=== PATIENT | male | born 1990 | race Caucasian/White ===

== ENCOUNTER 2019-05-15 08:06 | Observation (INO) ==
[2019-05-15] MEDS ORDERED: NS 1,000 ML IV ONE (08:34)
--- NOTE | 2019-05-15 08:38 | PROVIDER DOCUMENTATION ---
HPI-Abdominal Pain/GI Problem - General Chief Complaint: Abdominal Pain Stated Complaint: STOMACH PAIN Time Seen by Provider: 05/15/19 08:30 Allergies/Adverse Reactions: Patient Allergies Allergy/AdvReac Type Severity Reaction Status Date / Time amoxicillin trihydrate * Allergy Intermediate Unknown Verified 05/15/19 08:13 [From Augmentin] potassium clavulanate * Allergy Intermediate Unknown Verified 05/15/19 08:13 [From Augmentin] Home Medications: Home Medication List Medication Instructions Recorded Confirmed Last Taken Type Bictegrav/Emtricit/Tenofov Ala 1 tab PO QHS 05/15/19 05/15/19 05/14/19 History [Biktarvy 50-200-25 mg Tablet] Hydrocodone/APAP 7.5 mg/325 mg 1 ea PO Q6H PRN PRN #10 tab 05/16/19 Unknown Rx [Cyclone-7.5] - History of Present Illness-ABD Nature of Presenting Problems: Patient presents due to abdominal pain that began yesterday. Patient states it was uncomfortable yesterday and in the center. Patient states he was awoke this am and had sharp pain in the right side of his abdomen with rebound tenderness in RLQ. Abdominal Pain Onset Location: reports: RLQ, flank Pain Radiation: reports: no radiation Quality of Pain: reports: cramping, sharp Severity in ED: reports: moderate Onset/Duration: reports: gradual Timing: reports: still present Activities at Onset: reports: none Modifying Factors: improves with: palpation Associated Symptoms: denies: fatigue, fever/chills Last BM: this morning Dark Stools Present?: reports: none noticed Rectal Bleeding: reports: none # of Diarrhea Episodes: 1 # of Vomiting Episodes: 2 Review of Systems - Adult - REVIEW OF SYSTEMS - ADULT Constitutional: denies: fever, fatique Eyes: reports: no symptoms reported Ears, Nose, Mouth & Throat: reports: no symptoms reported Cardiovascular: reports: no symptoms reported Respiratory: reports: no symptoms reported Gastrointestinal: reports: abdominal pain Genitourinary: reports: no symptoms reported Musculoskeletal: reports: no symptoms reported Integumentary: reports: no symptoms reported Neurological: reports: no symptoms reported Psychiatric: reports: no symptoms reported Endocrine: reports: no symptoms reported Hematologic/Lymphatic: reports: no symptoms reported Allergic/Immunologic: reports: no symptoms reported Past History - Adult - PAST MEDICAL HISTORY-ADULT Review of Records: reports: Nursing Assessment Review Physical Exam-General - PHYSICAL EXAM-ADULT Initial Vital Signs Reviewed: Yes - CONSTITUTIONAL General Appearance: appears well, alert, no apparent distress - EYES Eyes: PERRL/EOMI - HEAD, EARS, NOSE, MOUTH & THROAT HENMT: normocephalic/atraumatic - NECK Neck: non-tender, supple - RESPIRATORY Respiratory: chest non-tender, lungs clear - CARDIOVASCULAR Cardiovascular: normal peripheral pulses, regular rate, rhythm, no edema, no gallop, no JVD, no murmur - GASTROINTESTINAL (ABDOMEN) Abdominal Exam: soft, other (RLQ pain) - LYMPHATIC Lymphatic: no adenopathy - MUSCULOSKELETAL Back Exam: no CVA tenderness, no vertebral tenderness Extremity: non-tender, normal gait - SKIN Integumentary: normal color, warm/dry - NEUROLOGIC Neurologic: grossly normal, no motor/sensory deficits - PSYCHIATRIC Psych/Mental Status: normal mood/affect, normal thought content, normal thought process Progress - PLAN OF CARE/RESULTS Progress/Plan/Lab Results: Vital Signs - 8 hr 05/15/19 08:10 Temperature 98.3 F Pulse Rate 102 H Respiratory Rate 20 Blood Pressure 151/107 O2 Sat by Pulse Oximetry 98 Orders Category Date Time Status Saline Loc DIRECTED Care 05/15/19 08:32 Ordered NPO Diet 05/15/19 08:[address] ABDOMEN/PELVIS W/O CONTRAST [CT] Stat Exams 05/15/19 08:33 Ordered AMYLASE [CHEM] Stat Lab 05/15/19 08:32 Uncollected CBC WITH ELECTRONIC DIFF [HEME] Stat Lab 05/15/19 08:32 Uncollected COMPREHENSIVE METABOLIC PANEL [CHEM] Stat Lab 05/15/19 08:32 Uncollected LIPASE [CHEM] Stat Lab 05/15/19 08:32 Uncollected URINALYSIS W/POSS RFLX CULT [URINALYSIS] Stat Lab 05/15/19 08:32 Uncollected Ns 1000 ml IV Bolus X1 Med 05/15/19 08:34 Ordered 0.9% Sodium Chloride Inj [Ns] 1,000 ml IV 999 mls/hr Result Diagrams: 05/15/19 08:25 05/15/19 08:25 - CONSULTS/PCP/HOSPITALIST Notification #1 *Consult/PCP/Hospitalist*: Dr Beach Time Discussed: 10:28 Consult Disposition: Will see in ED (agreed to see patient in ER) Departure - Departure Date of Disposition Decision: 05/15/19 Time of Disposition Decision: 10:29 DIAGNOSIS: Appendicitis Qualifiers: Appendicitis type: unspecified Qualified Code(s): K37 - Unspecified appendicitis Disposition: ADMITTED INPATIENT 09 Certified Medical Emergency: Emergent Condition: Good - Critical Care Note This patient required my direct & personal management of CC.: No Attestation - Physician/ RICH Attestation Patient care was provided by Advanced Practice Provider:: No The physician spent face to face time with patient:: Yes Advanced Practice Provider documentation review:: Supervising physician onsite and consulted in the evaluation and care of this patient. The physician did have a face to face encounter with the patient.
[2019-05-15 08:46] LABS: URINE SOURCE CLEAN CATCH
[2019-05-15 08:49] LABS: BASO# 0.04 X1000 (0.0-0.2); BASO% 0.3 % (0.0-0.8); EOS# 0.08 X1000 (0.0-0.7); EOS% 0.7 % (0.0-10.0); HEMATOCRIT 46.2 % (42.0-52.0); HEMOGLOBIN 15.7 g/dL (14.0-18.0); IMM GRAN# 0.02 X1000 (0.0-0.04); IMM GRAN% 0.2 % (0.0-0.5); LYMPH# 1.79 X1000 (1.2-3.4); MCH 31.1 PG (27-31); MCV 91.5 FL (81-99); MONO# 1.11 X1000 (0.11-0.59); MONO% 9.3 % (1.7-9.3); MPV 9.4 FL (7.4-10.4); NEUT# 8.92 X1000 (1.4-6.5); NEUT% 74.5 % (42.2-75.2); PLT 322 X1000 (130-400); RBC 5.05 XMIL (4.7-6.1); RDW 13.1 % (11.5-14.5); WBC 11.96 X1000 (4.8-10.8)
[2019-05-15 08:50] LABS: BILIRUBIN URINE NEGATIVE (NEGATIVE); BLOOD URINE NEGATIVE (NEGATIVE); COLOR ORANGE; GLUCOSE URINE NEGATIVE (NEGATIVE); KETONE URINE NEGATIVE (NEGATIVE); LEUKOCYTES URINE NEGATIVE (NEGATIVE); NITRITE URINE NEGATIVE (NEGATIVE); PH URINE 7.5; PROTEIN URINE TRACE mg/dL (NEGATIVE); SP GRAVITY URINE 1.023; TURBIDITY URINE HAZY (CLEAR); UROBILINOGEN URINE NORMAL (NORMAL)
[2019-05-15 08:54] LABS: UR EPITHELIAL CELLS <10 /HPF (<10); URINE BACTERIA NEGATIVE /HPF; URINE RBC <10 /HPF (<10); URINE WBC <10 /HPF (<10)
[2019-05-15 09:04] LABS: AGAP 14; ALB/GLOB RATIO 1.8; ALBUMIN 4.4 g/dL (3.5-5.0); ALKALINE PHOSPHATASE 74 U/L (32-122); AMYLASE 138 U/L (20-200); BUN 15 mg/dL (8-22); CALCIUM 9.2 mg/dL (8.8-10.2); CHLORIDE 102 mmol/L (98-107); COSMO 282; CREATININE 1.2 mg/dL (0.7-1.2); ESTIMATED GFR > 60; GLUCOSE 96 mg/dL (70-104); GOT 14 U/L (10-34); GPT 12 U/L (10-44); LIPASE 136 U/L (13-60); POTASSIUM 3.9 mmol/L (3.5-5.1); SODIUM 141 mmol/L (136-145); TCO2 25 mmol/L (25-35); TOTAL PROTEIN 6.8 g/dL (6.3-8.3)
--- NOTE | 2019-05-15 09:08 | Diag Imaging Result Doc PS360 ---
EXAM: CT ABDOMEN/PELVIS W/O CONTRAST 05/15/2019 HISTORY: right side abdomen TECHNIQUE: This exam was performed using automated exposure control, adjustment of mA or kV according to patient size, and/or use of iterative reconstruction technique. COMMENT: The current examination is compared with the previous study of 04/01/2012. There is minimal dependent atelectasis bilaterally which was not present on the previous study. The gallbladder is not distended. There may be some cholesterol stones and sediment in the gallbladder fundus. No evidence of para cholecystic fluid is present. The liver and spleen are unremarkable. The adrenal glands are not enlarged. The pancreas is within normal limits. There is right-sided nephrolithiasis with multiple small 1 to 2 mm sized stones particularly in the lower pole. No evidence of hydronephrosis is present. There was hydronephrosis on the previous study on the left but this is no longer present. There is no evidence of ureterolithiasis. There is free fluid in the pelvis. The urinary bladder is not distended. There is an appendicolith. The appendix is markedly distended to almost 2 cm proximally. There is considerable fluid around the base of the appendix. No discrete abscess is identified and there is no evidence of extraluminal gas. These findings were not present at the time the previous study. There is no evidence of bowel obstruction. There are some scattered bone islands in the pelvis and proximal femora. No acute bony abnormalities are present. IMPRESSION: Acute appendicitis. Electronically signed by Jimbo Mendez 05/15/2019 9:06 AM
[2019-05-15] MEDS ORDERED: MAXIPIME 2 GM/NS 2 GM/100 ML IVPB IV ONE (10:28)
[2019-05-15] MEDS: MORPHINE IV PRN ×3 (13:39→18:52)
[2019-05-15] MEDS ORDERED: DIPRIVAN 1% ONE (18:02)
[2019-05-15] MEDS ORDERED: ROBINUL ONE ×2 (18:02→19:25)
[2019-05-15] MEDS ORDERED: FENTANYL ONE (18:02)
[2019-05-15] MEDS ORDERED: QUELICIN (DOSE) ONE (18:02)
[2019-05-15] MEDS ORDERED: XYLOCAINE-MPF 2% ONE (18:04)
[2019-05-15] MEDS ORDERED: REGLAN ONE (18:22)
[2019-05-15] MEDS ORDERED: ZOFRAN ONE (18:22)
[2019-05-15] MEDS ORDERED: PEPCID ONE (18:23)
--- NOTE | 2019-05-15 18:38 | HISTORY AND PHYSICAL ---
HISTORY OF PRESENT ILLNESS: Mr. Youssef is a 28-year-old, white male, HIV positive who presented to our emergency department with a 24-hour history of abdominal pain which localized to his right lower quadrant. He presented to our emergency department, and a CT scan of his abdomen and pelvis was performed, which suggested acute appendicitis as did his exam, and we were asked to evaluate him. PAST MEDICAL HISTORY: HIV positive cared for in the [facility]. He has had a tonsillectomy. He has been told he had GERD. He has also been told that he has gallstones. He has also had kidney stones. MEDICATIONS: Per chart. ALLERGIES: No known drug allergies. SOCIAL HISTORY: His mother was present at the bedside. REVIEW OF SYSTEMS: A 14-point review of systems was performed and was essentially negative except for the history of present illness. FAMILY HISTORY: Was reviewed with the patient and was noncontributory. PHYSICAL EXAMINATION: GENERAL: Mr. Youssef is a young white male in no acute distress. No evidence of jaundice, no oral lesions, no cervical or supraclavicular lymphadenopathy. HEART: Regular rate. LUNGS: Clear to auscultation and percussion bilaterally. ABDOMEN: He has a tattoo at his umbilicus. He is tender in the right lower quadrant. He has no previous scars from abdominal surgery. No hernias. No palpable mass. He has right-sided costovertebral tenderness. RECTAL EXAM: Was not performed. EXTREMITIES: He does have palpable peripheral pulses. No peripheral edema. NEUROLOGICAL: There are no focal deficits. IMPRESSION: CT scan suggests acute appendicitis. PLAN: Laparoscopic, possible open, appendectomy today. I have discussed the procedure in detail with him. At the bedside in the emergency department, his mother was present. We specifically discussed risks of bleeding, infection, injury to intraabdominal contents with trochar placement, removal of a normal appendix, leakage from the appendiceal stump requiring reoperation for infection, conversion of laparoscopic to open appendectomy. He understands the need for surgery, and its risks and he wants to proceed. cc: May Beach MD
[2019-05-15] MEDS ORDERED: DURAMORPH ONE (18:47)
[2019-05-15] MEDS ORDERED: SENSORCAINE 0.25%/EPI 1:200,000 ONE (19:03)
[2019-05-15] MEDS ORDERED: LR 1,000 ML ONE ×2 (19:03→20:46)
[2019-05-15] MEDS ORDERED: STERILE WATER INJ. ONE (19:20)
[2019-05-15] MEDS ORDERED: NORCURON ONE (19:20)
[2019-05-15] MEDS ORDERED: NEOSTIGMINE ONE (19:25)
[2019-05-15] MEDS ORDERED: DECADRON ONE (19:48)
[2019-05-15] MEDS ORDERED: BLISTEX MEDICATED BERRY LIP BALM ONE (20:39)
[2019-05-15] MEDS ORDERED: LR 500 ML ONE (20:39)
[2019-05-15] MEDS: DILAUDID ONE ×4 (20:46→20:59)
[2019-05-15] MEDS ORDERED: TORADOL ONE (21:02)
[2019-05-15] MEDS ORDERED: SODIUM CHLORIDE 0.9% INJ PRN (22:15)
[2019-05-15] MEDS ORDERED: PHENERGAN IV PRN (22:15)
[2019-05-15] MEDS ORDERED: NORCO-7.5 PO PRN (22:19)
[2019-05-15] MEDS ORDERED: MORPHINE IV PRN (22:19)
[2019-05-15] MEDS: MOTRIN PO SCH (22:53)
[2019-05-15] MEDS: TYLENOL PO SCH (22:54)
[2019-05-15] MEDS ORDERED: LR 1,000 ML IV SCH (23:00)
--- NOTE | 2019-05-16 05:36 | OPERATIVE NOTE ---
PROCEDURE DATE: 05/15/2019 PREOPERATIVE DIAGNOSIS: Acute appendicitis. POSTOPERATIVE DIAGNOSIS: Acute appendicitis. PRINCIPAL PROCEDURE: Laparoscopic appendectomy. SURGEON: May Beach MD. GASOLINE POWER SHOVEL OPERATOR: Alonzo Woodruff MD. ANESTHESIA: General in addition to local anesthetic. ESTIMATED BLOOD LOSS: 25 mL. DRAINS: None. INDICATIONS: Gadiel Youssef is a 28-year-old white male HIV positive who presented to our emergency department with a 24 hour history of abdominal pain localizing to his right lower quadrant. As part of his evaluation, a CT scan of his abdomen and pelvis was performed which suggested acute appendicitis as did his exam. Appendectomy was recommended. FINDINGS: His appendix was becoming gangrenous. It was still alive at the base of the appendix. There was no evidence of rupture or free intraabdominal purulence. No other intra-abdominal pathology was noted, and we felt we did the operation safely DESCRIPTION OF PROCEDURE: The patient was brought to the operating room, placed supine, received general anesthesia, and was intubated. We did not use a Elias because he had voided just prior to coming to the operating room. His abdomen was prepped and draped in a sterile field. He had already received IV antibiotics. We made a curvilinear incision below the umbilicus with a 15 blade scalpel. A Veress needle was introduced through this incision into the abdomen. Pneumoperitoneum was established. The Veress needle was removed. We used step trocars. We placed 11 mm step trocar through this incision into the abdomen. The camera was placed through this port, and the abdomen was explored for injury. There was none. I used a 12 mm port step trocar through a small transverse incision in the suprapubic area midline, and then the 5 mm step trocar right lower quadrant of the abdomen. The camera was at the umbilicus, and we used a grasper with teeth and a dissector to mobilize the appendix. The appendix was easily mobilized. We used spatula cautery to help mobilize the appendix. We used a gold load 45 mm in length Endo ROBERT to come across the appendiceal mesentery. We used a reload of this stapler to come across the base of the appendix. We used an endobag to remove the appendix through our 12 mm port site. We placed this port back intra-abdominally, and the area of operation was thoroughly inspected, irrigated, and the irrigation was removed with suction. There was no evidence of ongoing bleeding. We were happy with the appendiceal stump. We decided against leaving a drain. All trocars removed under direct vision of the camera. The pneumoperitoneum was allowed to dissipate. I used [id number] 2-0 Vicryl stitches to reapproximate the fascia at our midline incisions, and all skin was closed with 4-0 Monocryl subcuticular stitches. Steri-Strips were applied. Plans are for him to go the recovery room, and then be hospitalized overnight. I spoke with his mother after the procedure. cc: May Beach MD
[2019-05-16] MEDS: TYLENOL PO SCH (08:58)
[2019-05-16] MEDS: MOTRIN PO SCH (08:58)
[2019-05-16 11:23] VITALS: BP 121/75
--- NOTE | 2019-05-16 22:09 | DISCHARGE SUMMARY ---
ADMISSION DATE: 05/15/2019 DISCHARGE DATE: 05/16/2019 ADMITTING DIAGNOSIS: Acute appendicitis without rupture. DISCHARGE DIAGNOSIS: Acute appendicitis without rupture. PRINCIPAL PROCEDURE: Laparoscopic appendectomy on 05/15/2019. DISCHARGE DISABILITY: Full. DISCHARGE DISPOSITION: He will return to our outpatient offices in 7 to 10 days for followup. DISCHARGE MEDICATIONS: He is to return to his home medications. HOSPITAL COURSE: Mr. Gadiel Youssef is a 28-year-old white male HIV positive who presented to our emergency department with a 24 hour history of abdominal pain localizing to his right lower quadrant. As part of his evaluation in the emergency department, he underwent a CT scan of his abdomen which also suggested acute appendicitis as did his exam. We were asked to see him and later in the evening he had a laparoscopic appendectomy for acute appendicitis without rupture. We felt the operation went safely. I did not use a drain and after surgery went to the recovery room and then to the [address] [place] [address] [place]. On the morning of postop day 1, he is awake. He was sore but clinically felt better. He is tolerating liquids and it was felt to be safe to discharge him to his home under the care of his family. He knows to contact us with any problems such as increasing abdominal pain, fever, nausea or vomiting. cc: May Beach MD
== END 2019-05-16 12:05 | disposition home or self-care (01) ==
LOC: 4N 08:06 → ED 08:06
PROVIDERS: ADMIT Surgery; ATTEND Surgery